=== PATIENT | female | born 1955 | race Caucasian/White ===

== ENCOUNTER 2020-03-09 22:47 | Emergency (ER) | payer BC, SELFPAY ==
[~2020-03-09] VITALS: Ht 162.6 cm; Wt 78.0 kg
[2020-03-09 22:49] VITALS: Ht 162.6 cm; Wt 78.0 kg
[2020-03-09 23:45] VITALS: BP 135/81
== END 2020-03-09 23:45 | disposition home or self-care (01) ==
LOC: ED 22:47
DX: R09.81 Nasal congestion (principal); Z20.828 Contact with and (suspected) exposure to other viral communicable diseases
CPT/HCPCS: U0003